=== PATIENT | female | born 1945 | race Caucasian/White ===

== ENCOUNTER 2017-03-23 07:22 | Outpatient (CLI) | payer MEDICARE ==
--- NOTE | 2017-03-23 09:19 | RAD ---
SCOLIOSIS STUDY HISTORY: Pain in spine. FINDINGS: Film technique is limited due to body habitus. There are arthritic changes of the spine, which appear to be centered more in the thoracolumbar spin e region. I do not see any signs of any scoliotic change. IMPRESSION: Arthritic changes of the spine. POS: [facility]
== END 2017-03-23 07:23 | disposition home or self-care (01) ==
LOC: MADRAD 07:22
PROVIDERS: ATTEND Nurse Practitioner Family
DX: M41.9 Scoliosis, unspecified (principal); M47.9 Spondylosis, unspecified
CPT/HCPCS: 72081